=== PATIENT | female | born 1955 | race Caucasian/White ===

== ENCOUNTER 2022-02-05 15:50 | Inpatient (IN) | payer MEDICARE, OTHER ==
[~2022-02-05 15:50] MED LIST: Iopamidol 370 76% 100 ML VIAL ONE
[2022-02-05 16:56] LABS: #Basophils 0.1 10x3/uL (0.0-0.2); #Eosinphils 0.1 10x3/uL (0.0-0.5); #Neutrophils 4.2 10x3/uL (1.5-8.4); %Basophils 0.7 % (0.0-2.0); %Eosinophils 0.7 % (0.0-6.0); %Monocytes 14.5 % (0.0-10.0); %Neutrophils 60.8 % (40.0-75.0); Hemoglobin 12.8 g/dL (12.0-15.5); Mean Corpuscular HGB CONC 34.8 g/dL (32.0-36.0); Mean Corpuscular Hemoglobin 31.3 pg (27.0-33.0); Mean Platelet Volume 8.9 fl (7.4-10.4); Platelet Count 436 10x3/uL (150-450); RBC Distribution Width 12.5 % (11.5-14.5); Red Blood Cell (RBC) Count 4.09 10x6/uL (3.90-5.03)
[2022-02-05 17:11] LABS: ALT (SGPT) 10 U/L (8-55); AST (SGOT) 18 U/L (5-34); Albumin 4.3 g/dL (3.4-4.8); Alkaline Phosphatase 76 U/L (40-110); Anion Gap 14 mmol/L (10-20); BUN (Urea Nitrogen) 17 mg/dL (9.8-20.1); Bilirubin, Total 0.3 mg/dL (0.2-1.2); Calc. Creatinine Clearance 0 mL/min (70-130); Calcium 9.8 mg/dL (7.8-10.44); Carbon Dioxide 24 mmol/L (23-31); Chloride 103 mmol/L (98-107); Estimated GFR 61; Globulin 3.2 g/dL (2.4-3.5); Glucose 96 mg/dL (80-115); Potassium 4.1 mmol/L (3.5-5.1); Protein, Total 7.5 g/dL (5.8-8.1); Sodium 137 mmol/L (136-145)
[2022-02-05 17:14] LABS: SARS-CoV-2 NAA Rapid Test Not Detected (NotDetected)
[2022-02-05] MEDS ORDERED: methylPREDNISolone Sod Succ/PF 125 MG/2 ML VIAL ONE (17:44)
[2022-02-05 18:44] LABS: Bilirubin Neg (Negative); Blood, Urine 10 (Negative); Clarity Clear (Clear); Glucose, Urine (Dipstick) Normal (Negative); Ketone, Urine Negative (Negative); Leukocyte 500 (Negative); Nitrite Negative (Negative); Protein, Urine (Dipstick) 15 mg/dl (Neg-Trace); Specific Gravity, Urine 1.015 (1.005-1.030); Urobilinogen Normal mg/dL (Less than 2)
[2022-02-05 18:49] LABS: RBC/HPF 0-3 HPF (0-3)
[2022-02-05 18:50] LABS: Bacteria/HPF Rare-Few HPF (None Seen); Squamous Epithelial 0-3 HPF (0-3)
[2022-02-05] MEDS ORDERED: Acetaminophen 325 MG TAB PO PRN (21:07)
[2022-02-05] MEDS ORDERED: Senokot S 8.6-50 MG TAB PO PRN (21:07)
[2022-02-05] MEDS ORDERED: Arformoterol 15 MCG/2 ML NEB NEB SCH (21:15)
[2022-02-06] MEDS ORDERED: methylPREDNISolone Sod Succ 40 MG VIAL ONE (01:07)
[2022-02-06] MEDS ORDERED: ALPRAZolam 1 MG TAB PO SCH (04:00)
[2022-02-06] MEDS: Nicotine 21 MG PATCH TD SCH ×2 (04:41→09:11)
[2022-02-06] MEDS: methylPREDNISolone Sod Succ 40 MG VIAL IVP SCH ×2 (04:41→06:54)
[2022-02-06 05:45] LABS: #Monocytes 0.1 10x3/uL (0.0-1.1); #Neutrophils 4.3 10x3/uL (1.5-8.4); %Basophils 0.2 % (0.0-2.0); %Lymphocytes 15.1 % (18.0-47.0); %Monocytes 1.2 % (0.0-10.0); %Neutrophils 83.3 % (40.0-75.0); Mean Corpuscular HGB CONC 34.9 g/dL (32.0-36.0); Mean Corpuscular Hemoglobin 31.3 pg (27.0-33.0); Mean Corpuscular Volume 89.9 fl (81.6-98.3); Mean Platelet Volume 9.2 fl (7.4-10.4); Platelet Count 453 10x3/uL (150-450); RBC Distribution Width 12.5 % (11.5-14.5); Red Blood Cell (RBC) Count 4.15 10x6/uL (3.90-5.03); White Blood Cell (WBC) Count 5.1 10x3/uL (3.5-10.5)
[2022-02-06 05:50] VITALS: BMI 21.3
[2022-02-06 05:56] LABS: Anion Gap 16 mmol/L (10-20); BUN (Urea Nitrogen) 18 mg/dL (9.8-20.1); Calc. Creatinine Clearance 64 mL/min (70-130); Calcium 9.6 mg/dL (7.8-10.44); Carbon Dioxide 21 mmol/L (23-31); Chloride 103 mmol/L (98-107); Estimated GFR 80; Glucose 164 mg/dL (80-115); Magnesium 2.1 mg/dL (1.6-2.6); Potassium 3.9 mmol/L (3.5-5.1); Sodium 136 mmol/L (136-145)
[2022-02-06] MEDS ORDERED: Arformoterol 15 MCG/2 ML NEB NEB SCH (06:30)
[2022-02-06] MEDS ORDERED: Budesonide 0.5 MG/2 ML NEB NEB SCH (06:30)
[2022-02-06] MEDS ORDERED: Enoxaparin Sodium 40 MG/0.4 ML SYRINGE SC SCH (09:00)
[2022-02-06] MEDS ORDERED: buPROPion 75 MG TAB PO SCH (09:00)
[2022-02-06] MEDS ORDERED: Escitalopram Oxalate 10 mg Tablet PO SCH (09:00)
[2022-02-06] MEDS ORDERED: Lorazepam 0.5 MG TAB PO SCH (10:00)
[2022-02-06 19:45] VITALS: BP 157/89; TEMP 98.7
== END 2022-02-06 14:15 | disposition home or self-care (01) | DRG 189 ==
LOC: CSHERS 15:50 → CSHERHOLD 02-06 00:50 → CSHTELE 02-06 03:14
PROVIDERS: ADMIT Family Medicine; ATTEND Family Medicine
DX: J96.01 Acute respiratory failure with hypoxia (principal); J44.1 Chronic obstructive pulmonary disease with (acute) exacerbation; I10 Essential (primary) hypertension; F32.A Depression, unspecified; Z90.49 Acquired absence of other specified parts of digestive tract; Z90.89 Acquired absence of other organs; Z98.890 Other specified postprocedural states; Z87.891 Personal history of nicotine dependence
CPT/HCPCS: 36415; 71275; 80048; 80053; 81003; 81015; 83735; 83880; 84484; 85025; 93005; 94640; 94760; J1650; J2920; J2930; J7620; J7626; Q9967

== ENCOUNTER 2022-02-27 12:15 | Inpatient (IN) | payer MEDICARE ==
[2022-02-27 13:50] LABS: Actual Bicarbonate (HCO3v) 20 mEq/L (22-28); Base Excess -2.9 mEq/L (-2.0 to +3.0); Calcium, Ionized (venous) 1.07 mmol/L (1.16-1.32); Chloride (VBG) 105 mmol/L (98-106); Hemoglobin (Hb) 14.4 g/dL (11.7-16.1); Potassium (VBG) 3.77 mmol/L (3.70-5.30); Puncture Site Other Site; pH (venous) 7.45 (7.32-7.43)
[2022-02-27 13:54] LABS: #Eosinphils 0.1 10x3/uL (0.0-0.5); #Neutrophils 4.8 10x3/uL (1.5-8.4); %Basophils 0.4 % (0.0-2.0); %Eosinophils 1.8 % (0.0-6.0); %Lymphocytes 24.4 % (18.0-47.0); %Monocytes 12.2 % (0.0-10.0); %Neutrophils 60.9 % (40.0-75.0); Hemoglobin 13.5 g/dL (12.0-15.5); Mean Corpuscular HGB CONC 34.9 g/dL (32.0-36.0); Mean Corpuscular Hemoglobin 31.1 pg (27.0-33.0); Mean Corpuscular Volume 89.2 fl (81.6-98.3); Mean Platelet Volume 9.1 fl (7.4-10.4); Platelet Count 428 10x3/uL (150-450); RBC Distribution Width 12.5 % (11.5-14.5); Red Blood Cell (RBC) Count 4.34 10x6/uL (3.90-5.03); White Blood Cell (WBC) Count 7.9 10x3/uL (3.5-10.5)
[2022-02-27 14:01] LABS: Acetaminophen Less than 10.0 mcg/mL (10.0-30.0); Alcohol Less than 10 mg/dL (Less than 10); Salicylate Less than 8.0 mg/dL (15.0-30.0)
[2022-02-27 14:02] LABS: ALT (SGPT) 10 U/L (8-55); AST (SGOT) 25 U/L (5-34); Albumin 4.4 g/dL (3.4-4.8); Alkaline Phosphatase 74 U/L (40-110); Anion Gap 16 mmol/L (10-20); BUN (Urea Nitrogen) 17 mg/dL (9.8-20.1); Bilirubin, Total 0.5 mg/dL (0.2-1.2); Calc. Creatinine Clearance 0 mL/min (70-130); Calcium 9.6 mg/dL (7.8-10.44); Carbon Dioxide 19 mmol/L (23-31); Chloride 104 mmol/L (98-107); Estimated GFR 80; Globulin 3.1 g/dL (2.4-3.5); Glucose 94 mg/dL (80-115); Potassium 3.7 mmol/L (3.5-5.1); Protein, Total 7.5 g/dL (5.8-8.1); Sodium 135 mmol/L (136-145)
[2022-02-27] MEDS ORDERED: Acetaminophen 325 MG TAB PO PRN (14:53)
[2022-02-27] MEDS ORDERED: Ondansetron PF 4 MG/2 ML Vial IVP PRN (14:53)
[2022-02-27] MEDS ORDERED: Ondansetron ODT 4 MG TAB PO PRN (14:53)
[2022-02-27] MEDS ORDERED: Ipratropium/Albuterol 3 ML NEB NEB PRN (14:57)
[2022-02-27 15:25] LABS: Magnesium 1.8 mg/dL (1.6-2.6)
[2022-02-27] MEDS ORDERED: Nicotine 14 MG PATCH TD SCH (16:00)
[2022-02-27] MEDS ORDERED: Lorazepam 2 MG/ML VIAL ONE (16:15)
[2022-02-27 16:21] LABS: Bilirubin 1+ (Negative); Blood, Urine 25 (Negative); Clarity Clear (Clear); Glucose, Urine (Dipstick) Normal (Negative); Ketone, Urine 50 mg/dL (Negative); Leukocyte Negative (Negative); Nitrite Negative (Negative); Protein, Urine (Dipstick) 30 mg/dl (Neg-Trace); Specific Gravity, Urine 1.025 (1.005-1.030)
[2022-02-27 16:30] LABS: Amphetamine Not Detected (NotDetected); Barbiturates Screen Not Detected (NotDetected); Benzodiazepine Screen Not Detected (NotDetected); Cocaine Metabolite Screen Not Detected (NotDetected); Methadone Not Detected (NotDetected); Methamphetamine Not Detected (NotDetected); Opiate Screen Not Detected (NotDetected); Oxycodone Screen Not Detected (NotDetected); Phencyclidine (PCP) Not Detected (NotDetected); THC/Cannabinoid Screen Detected (NotDetected); Tricyclic Screen Not Detected (NotDetected)
[2022-02-27] MEDS ORDERED: Micafungin 100 MG in Sodium Chloride 0.9% 100 ML IVPB SCH (16:30)
[2022-02-27 16:37] LABS: Bacteria/HPF Rare-Few HPF (None Seen); Mucous/LPF 2+ LPF (<2+); RBC/HPF 0-3 HPF (0-3); Squamous Epithelial 0-3 HPF (0-3)
[2022-02-27] MEDS ORDERED: Nicotine 14 MG PATCH ONE (16:47)
[2022-02-27] MEDS ORDERED: Ipratropium/Albuterol 3 ML NEB ONE (19:00)
[2022-02-27 19:52] LABS: Hemoglobin A1c 5.3 % (4.0-6.0)
[2022-02-27] MEDS ORDERED: Atorvastatin Calcium 40 MG TAB PO SCH (21:00)
[2022-02-27] MEDS ORDERED: Zolpidem Tartrate 5 MG TAB PO PRN (21:07)
[2022-02-27 21:40] VITALS: BMI 19.3
[2022-02-27] MEDS ORDERED: Lorazepam 0.5 MG TAB PO SCH (22:30)
[2022-02-28 04:36] LABS: #Basophils 0.1 10x3/uL (0.0-0.2); #Eosinphils 0.2 10x3/uL (0.0-0.5); #Monocytes 0.9 10x3/uL (0.0-1.1); #Neutrophils 4.1 10x3/uL (1.5-8.4); %Basophils 0.7 % (0.0-2.0); %Eosinophils 2.9 % (0.0-6.0); %Lymphocytes 25.6 % (18.0-47.0); %Monocytes 12.8 % (0.0-10.0); %Neutrophils 57.7 % (40.0-75.0); Hemoglobin 12.4 g/dL (12.0-15.5); Mean Corpuscular HGB CONC 35.2 g/dL (32.0-36.0); Mean Corpuscular Hemoglobin 31.2 pg (27.0-33.0); Mean Corpuscular Volume 88.7 fl (81.6-98.3); Platelet Count 378 10x3/uL (150-450); RBC Distribution Width 12.3 % (11.5-14.5); Red Blood Cell (RBC) Count 3.97 10x6/uL (3.90-5.03); White Blood Cell (WBC) Count 7.1 10x3/uL (3.5-10.5)
[2022-02-28 04:49] LABS: ALT (SGPT) 12 U/L (8-55); AST (SGOT) 21 U/L (5-34); Albumin 3.8 g/dL (3.4-4.8); Alkaline Phosphatase 62 U/L (40-110); Anion Gap 14 mmol/L (10-20); BUN (Urea Nitrogen) 17 mg/dL (9.8-20.1); Bilirubin, Total 0.5 mg/dL (0.2-1.2); Calc. Creatinine Clearance 57 mL/min (70-130); Carbon Dioxide 21 mmol/L (23-31); Cardiac Risk 5.6 (Less than 4.5); Chloride 107 mmol/L (98-107); Cholesterol 280 mg/dl (< 200 Desired); Estimated GFR 79; Globulin 3.1 g/dL (2.4-3.5); Glucose 104 mg/dL (80-115); HDL Cholesterol 50 mg/dL (>60 Neg Risk); LDL Cholesterol, Calculated 202 mg/dL; Potassium 3.2 mmol/L (3.5-5.1); Protein, Total 6.9 g/dL (5.8-8.1); Sodium 139 mmol/L (136-145); Triglycerides 140 mg/dL (Less than 150)
[2022-02-28] MEDS ORDERED: Aspirin 81 mg Enteric Coated Tablet PO SCH (09:00)
[2022-02-28 12:22] VITALS: BP 143/70; TEMP 98.1
== END 2022-02-28 13:30 | disposition home or self-care (01) | DRG 69 ==
LOC: CSHERS 12:15 → CSHERHOLD 15:37 → CSHTELE 18:49
PROVIDERS: ADMIT Family Medicine; ATTEND Family Medicine
DX: G45.9 Transient cerebral ischemic attack, unspecified (principal); I10 Essential (primary) hypertension; J44.9 Chronic obstructive pulmonary disease, unspecified; F17.210 Nicotine dependence, cigarettes, uncomplicated; Z79.899 Other long term (current) drug therapy; Z79.52 Long term (current) use of systemic steroids; Z90.49 Acquired absence of other specified parts of digestive tract
CPT/HCPCS: 36415; 36416; 51701; 70450; 70551; 71045; 80053; 80061; 80306; 80307; 81003; 81015; 82805; 83036; 83735; 84443; 84484; 85025; 93005; 93306; 93880; 94760; 96374; J1650; J2060; J2248; J3490; J7620